=== PATIENT | male | born 1980 | race African-American/Black ===

== ENCOUNTER 2018-01-02 14:38 | Emergency (ER) | payer MEDICARE ==
[~2018-01-02] VITALS: Ht 177.8 cm; Wt 69.0 kg
[2018-01-02] MEDS ORDERED: HYDROCODONE/ACETAMINOPHEN 5/325MG TABLET PO ONE (18:00)
[2018-01-02 19:35] VITALS: BP 122/71
== END 2018-01-02 19:40 | disposition home or self-care (01) ==
LOC: ER 14:38
DX: S62.002A Unspecified fracture of navicular [scaphoid] bone of left wrist, initial encounter for closed fracture (principal); M54.2 Cervicalgia; M54.89 Other dorsalgia; F17.210 Nicotine dependence, cigarettes, uncomplicated; F12.10 Cannabis abuse, uncomplicated; Z96.649 Presence of unspecified artificial hip joint; V43.52XA Car driver injured in collision with other type car in traffic accident, initial encounter; Y93.89 Activity, other specified; Y92.488 Other paved roadways as the place of occurrence of the external cause
CPT/HCPCS: 29125; 73110; 99284

== ENCOUNTER 2023-03-23 19:22 | Emergency (ER) | payer OTHER ==
[~2023-03-23] VITALS: Ht 177.8 cm; Wt 81.0 kg
[~2023-03-23 19:22] MED LIST: AMOX1TAB16 MT; P20 MT
[2023-03-23 19:42] VITALS: BP 142/82; PULSE 99; RESP 14; TEMP 98; O2SAT 98
== END 2023-03-23 22:20 | disposition home or self-care (01) ==
LOC: ER 19:22
DX: R51.9 Headache, unspecified (principal)
CPT/HCPCS: 71046; 99283